=== PATIENT | female | born 1995 | race Native Hawaiian/Other Pacific Islander ===

== ENCOUNTER 2017-04-03 08:18 | Emergency (ER) | payer OTHER ==
[2017-04-03 08:22] VITALS: PULSE 79; TEMP 97; O2SAT 98
[2017-04-03 08:24] VITALS: BMI 20.5
--- NOTE | 2017-04-03 08:36 | ED PDOC ---
HPI: CCC, URI, Sore Throat Time Seen by Provider: 04/03/17 08:27 Chief Complaint (Provider): Cough History Per: Patient History/Exam Limitations: no limitations Have you had recent travel within the past 21 days to any of the following countries: [place], [place], [place] or [place]?: No Onset/Duration Of Symptoms: Days (1 week) Current Symptoms Are (Timing): Still Present Additional Complaint(s): Pt. with cough, sore throat, bodyaches. Able to swallow with no issues. No chest pain, dyspnea, fever, weakness, abd pain, nausea, vomit, headaches. Tried only Robitussin. Past Medical History Reviewed: Nursing Documentation, Vital Signs Vital Signs: Last Vital Signs Temp 97 F L 04/03/17 08:22 Pulse 79 04/03/17 08:22 Resp BP 93/68 L 04/03/17 08:22 Pulse Ox 98 04/03/17 08:22 - Medical History PMH: No Chronic Diseases - Surgical History Surgical History: No Surg Hx - Family History Family History: States: Unknown Family Hx - Social History Current smoker - smoking cessation education provided: No Alcohol: None Drugs: Denies - Home Medications Home Medications: Ambulatory Orders Medication Instructions Recorded Famotidine [Pepcid] 20 mg PO BID #20 tab 06/28/16 Ondansetron [Zofran] 4 mg PO Q8H PRN #10 tab 06/28/16 Benzonatate [Tessalon Perles] 100 mg PO BID PRN 5 Days 04/03/17 Ibuprofen [Motrin] 600 mg PO TID 7 Days 04/03/17 - Allergies Allergies/Adverse Reactions: Allergies Allergy/AdvReac Type Severity Reaction Status Date / Time Penicillins Allergy RASH Verified 06/28/16 00:35 Review of Systems Constitutional: Negative for: Fever, Chills, Weakness Eyes: Negative for: Vision Change ENT: Positive for: Throat Pain. Negative for: Ear Pain, Nose Pain, Nose Congestion, Mouth Pain Cardiovascular: Negative for: Chest Pain, Orthopnea Respiratory: Positive for: Cough. Negative for: Shortness of Breath Gastrointestinal: Negative for: Nausea, Vomiting, Abdominal Pain Musculoskeletal: Negative for: Neck Pain Skin: Negative for: Rash Neurological: Negative for: Weakness, Numbness, Headache, Dizziness Physical Exam - Reviewed Nursing Documentation Reviewed: Yes Vital Signs Reviewed: Yes - Physical Exam Appears: Positive for: Non-toxic, No Acute Distress Head Exam: Positive for: ATRAUMATIC, NORMAL INSPECTION, NORMOCEPHALIC Skin: Positive for: Normal Color, Warm, DRY Eye Exam: Positive for: EOMI, Normal appearance, PERRL ENT: Positive for: Normal ENT Inspection. Negative for: Nasal Congestion, Pharyngeal Erythema, Tonsillar Exudate Neck: Positive for: Normal, Painless ROM, Supple Cardiovascular/Chest: Positive for: Regular Rate, Rhythm Respiratory: Positive for: Normal Breath Sounds. Negative for: Wheezing Back: Positive for: Normal Inspection. Negative for: L CVA Tenderness, R CVA Tenderness Extremity: Positive for: Normal ROM. Negative for: Tenderness, Pedal Edema Neurologic/Psych: Positive for: Alert, Oriented - ECG O2 Sat by Pulse Oximetry: 98 Pulse Ox Interpretation: Normal - Progress ED Course And Treament: 836: Stable. AAOx3. Pain free. Tolerated PO. Fu with pcp. Disposition - Clinical Impression Clinical Impression: URI (upper respiratory infection) - Patient ED Disposition Is Patient to be Admitted: No Counseled Patient/Family Regarding: Diagnosis, Need For Followup, Rx Given - Disposition Referrals: [facility] [Outside] - 04/04/17 Disposition: Routine/Home Disposition Time: 08:37 Condition: STABLE Additional Instructions: Return if not better in 3 days. Prescriptions: Benzonatate [Tessalon Perles] 100 mg PO BID PRN 5 Days PRN Reason: Cough Ibuprofen [Motrin] 600 mg PO TID 7 Days Instructions: Upper Respiratory Infection (ED) Forms: [employer] (Malay)
[2017-04-03 08:37] VITALS: RESP 16
[2017-04-03 10:51] VITALS: BP 115/75
== END 2017-04-03 09:00 | disposition home or self-care (01) ==
LOC: H.ER 08:18
DX: J06.9 Acute upper respiratory infection, unspecified (principal)